=== PATIENT | male | born 1945 | race Asian ===

== ENCOUNTER 2017-02-14 22:52 | Emergency (ER) | payer OTHER ==
[~2017-02-14] VITALS: Ht 185.4 cm; Wt 70.3 kg
[2017-02-14 22:58] VITALS: BP_SYST 163
[2017-02-14] MEDS ORDERED: PREDNISONE 20 MG TABLET PO ONE (23:15)
[2017-02-14 23:35] VITALS: BP_SYST 163
== END 2017-02-14 23:35 | disposition home or self-care (01) ==
LOC: SED 22:52
DX: T63.441A Toxic effect of venom of bees, accidental (unintentional), initial encounter (principal); M79.89 Other specified soft tissue disorders; I10 Essential (primary) hypertension; Z88.6 Allergy status to analgesic agent; Y92.89 Other specified places as the place of occurrence of the external cause
CPT/HCPCS: 99283; J7512

== ENCOUNTER 2018-06-21 22:21 | Inpatient (IN) | payer OTHER ==
[~2018-06-21] VITALS: Ht 188 cm; Wt 74.8 kg
[2018-06-22 00:19] VITALS: BP_SYST 137
[2018-06-22] MEDS ORDERED: DOXA4TAB2 PO (00:32)
[2018-06-22] MEDS ORDERED: FLUT1DIS3 IH (00:32)
[2018-06-22] MEDS ORDERED: ALBU8.5H8 INH (00:32)
[2018-06-22] MEDS ORDERED: ASPI-1153 PO (00:32)
[2018-06-22] MEDS ORDERED: FLOEARD OP (00:32)
[2018-06-22] MEDS ORDERED: HYDROcodone/ACETAMIN 10-325 MG TAB PO PRN (02:30)
[2018-06-22] MEDS ORDERED: ALBUTEROL SULFATE 0.083% 2.5 MG/3 ML VIAL.NEB INH PRN (02:30)
[2018-06-22] MEDS ORDERED: MORPHINE 4 MG/ML INJ. SYRINGE IVP PRN (02:30)
[2018-06-22] MEDS ORDERED: ONDANSETRON HCL 4 MG/2 ML VIAL IVP PRN (02:30)
[2018-06-22] MEDS ORDERED: ALBUTEROL MDI INHALATION 8 GM INH INH PRN (02:30)
[2018-06-22 07:27] LABS: ANION GAP 6 (5-15); CALCIUM 8.5 mg/dL (8.4-11.0); CHLORIDE 103 mmol/L (98-107); CREATININE 0.89 mg/dL (0.55-1.30); GLUCOSE 102 mg/dL (70-99); POTASSIUM 3.9 mmol/L (3.5-5.1); SODIUM SERUM 136 mmol/L (136-145); UREA NITROGEN, BLOOD 10 mg/dL (8-21)
[2018-06-22 07:35] LABS: ALANINE AMINOTRANSFERASE 19 U/L (12-78); ALBUMIN 3.2 g/dL (3.4-4.8); ASPARTATE AMINOTRANSFERASE 19 U/L (10-37); TOTAL BILIRUBIN 0.5 mg/dL (0.0-1.0)
[2018-06-22 07:36] LABS: GFR AFRICAN AMERICAN 109 mL/min (>90)
[2018-06-22 07:38] LABS: CHOLESTEROL 156 mg/dL (<200); HDL CHOLESTEROL 33 mg/dL (>45); TRIGLYCERIDES 122 mg/dL (30-150)
[2018-06-22 07:39] LABS: LDL CHOLESTEROL 102 mg/dL (<100)
[2018-06-22 08:09] VITALS: BP_SYST 137
[2018-06-22] MEDS: ASPIRIN 81 MG TABLET(ECOTRIN) PO SCH (08:29)
[2018-06-22] MEDS: DOXAZOSIN MESYLATE 2 MG TABLET PO SCH (08:29)
[2018-06-22 08:45] LABS: HEMATOCRIT 32.4 % (36-54); HEMOGLOBIN 10.5 g/dL (14.0-18.0); WHITE BLOOD COUNT (AUTO) 5.9 K/uL (4.8-10.8)
[2018-06-22 08:52] LABS: BASOPHILS % (AUTO) 0.3 % (0.0-2.0); EOSINOPHILS # (AUTO) 0.1 K/uL (0.0-0.4); EOSINOPHILS % (AUTO) 1.6 % (0.0-4.0); LYMPHOCYTES # (AUTO) 1.7 K/uL (1.0-5.5); LYMPHOCYTES % (AUTO) 28.4 % (20.5-51.5); MEAN CORPUSCULAR HEMOGLOBIN 23 pg (27-31); MEAN CORPUSCULAR HGB CONC 32 % (32-36); MEAN CORPUSCULAR VOLUME 72 fL (79.0-98.0); MONOCYTES # (AUTO) 0.4 K/uL (0.0-1.0); NEUTROPHILS # (AUTO) 3.7 K/uL (1.8-7.7); NEUTROPHILS % (AUTO) 62.7 % (40.0-70.0); PLATELET COUNT (AUTO) 328 K/uL (130-430); RED CELL DISTRIBUTION WIDTH 17.5 % (9.0-15.0)
[2018-06-22] MEDS ORDERED: OFLOXACIN 0.3%, 5 ML EAR DROPS OP SCH (09:00)
[2018-06-22 09:50] VITALS: BP_SYST 137
[2018-06-22 12:27] VITALS: BP_SYST 140
[2018-06-22] MEDS: AMOXICILLIN/CLAVULANATE POTASSIUM 500 MG TABLET PO SCH ×2 (14:27→21:23)
[2018-06-22] MEDS: NACL 0.9% 1,000 ML IV SCH (14:29)
[2018-06-22] MEDS ORDERED: COMMUNICATION ORDER XX ONE (15:30)
[2018-06-22] MEDS ORDERED: OFLOXACIN 0.3%, 5 ML EAR DROPS OT ONE (15:45)
[2018-06-22] MEDS ORDERED: FLUTICASONE/VILANTEROL 1 EACH BLST.W.DEV INH ONE (16:15)
[2018-06-22 16:54] VITALS: BP_SYST 140
[2018-06-22 20:00] VITALS: BP_SYST 144
[2018-06-22] MEDS ORDERED: FLUTICASONE 250 mCg/SALMETEROL 50 mCg DISKUS W.DEV INH SCH (21:00)
[2018-06-22] MEDS: OFLOXACIN 0.3%, 5 ML EAR DROPS OT SCH (21:24)
[2018-06-23 01:28] VITALS: BP_SYST 138
[2018-06-23] MEDS: NACL 0.9% 1,000 ML IV SCH (04:11)
[2018-06-23] MEDS: AMOXICILLIN/CLAVULANATE POTASSIUM 500 MG TABLET PO SCH (06:16)
[2018-06-23 07:10] LABS: CALCIUM 7.9 mg/dL (8.4-11.0); CREATININE 0.97 mg/dL (0.55-1.30); POTASSIUM 3.9 mmol/L (3.5-5.1); TOTAL BILIRUBIN 0.3 mg/dL (0.0-1.0)
[2018-06-23 07:46] LABS: HEMATOCRIT 32.2 % (36-54); HEMOGLOBIN 10.4 g/dL (14.0-18.0); MEAN CORPUSCULAR HEMOGLOBIN 23 pg (27-31); MEAN CORPUSCULAR HGB CONC 32 % (32-36); MEAN CORPUSCULAR VOLUME 72 fL (79.0-98.0); RED BLOOD CELL COUNT(AUTO) 4.45 MIL/uL (4.2-6.2); WHITE BLOOD COUNT (AUTO) 5.5 K/uL (4.8-10.8)
[2018-06-23 07:47] LABS: BASOPHILS % (AUTO) 0.6 % (0.0-2.0); EOSINOPHILS # (AUTO) 0.2 K/uL (0.0-0.4); EOSINOPHILS % (AUTO) 3.2 % (0.0-4.0); LYMPHOCYTES # (AUTO) 1.5 K/uL (1.0-5.5); LYMPHOCYTES % (AUTO) 27.2 % (20.5-51.5); MONOCYTES # (AUTO) 0.4 K/uL (0.0-1.0); MONOCYTES % (AUTO) 7.8 % (1.7-9.3); NEUTROPHILS # (AUTO) 3.3 K/uL (1.8-7.7); NEUTROPHILS % (AUTO) 61.2 % (40.0-70.0); PLATELET COUNT (AUTO) 289 K/uL (130-430); RED CELL DISTRIBUTION WIDTH 17.9 % (9.0-15.0)
[2018-06-23 08:27] VITALS: BP_SYST 137
[2018-06-23] MEDS: OFLOXACIN 0.3%, 5 ML EAR DROPS OT SCH (08:29)
[2018-06-23] MEDS: DOXAZOSIN MESYLATE 2 MG TABLET PO SCH (08:29)
[2018-06-23] MEDS: ASPIRIN 81 MG TABLET(ECOTRIN) PO SCH (08:29)
[2018-06-23] MEDS ORDERED: FLUTICASONE/VILANTEROL 1 EACH BLST.W.DEV INH SCH (09:00)
[2018-06-23 11:28] VITALS: BP_SYST 157
[2018-06-23] MEDS ORDERED: AMOX-423 PO (12:17)
[2018-06-23 12:27] VITALS: BP_SYST 144
[2018-06-23] MEDS ORDERED: SALMETEROL IH SCH (21:00)
[2018-06-23] MEDS ORDERED: FLUTICASONE IH SCH (21:00)
== END 2018-06-23 13:30 | disposition home or self-care (01) | DRG 312 ==
LOC: SMU 06-22 00:11 → STU 06-22 00:26
PROVIDERS: ADMIT Internal Medicine; ATTEND Internal Medicine
DX: I95.1 Orthostatic hypotension (principal); D64.9 Anemia, unspecified; E86.0 Dehydration; H66.92 Otitis media, unspecified, left ear; I10 Essential (primary) hypertension; J45.909 Unspecified asthma, uncomplicated; R00.0 Tachycardia, unspecified; T44.6X5A Adverse effect of alpha-adrenoreceptor antagonists, initial encounter; W19.XXXA Unspecified fall, initial encounter; Y93.89 Activity, other specified; Y92.89 Other specified places as the place of occurrence of the external cause; Y99.8 Other external cause status
CPT/HCPCS: 36415; 80053; 80061; 84484; 85025; 93306; 93880; G0378; J7030